=== PATIENT | female | born 2000 | race Caucasian/White ===

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

== ENCOUNTER 2020-11-04 05:32 | Emergency (ER) | payer MEDICAID ==
[2020-11-04] MEDS ORDERED: Hydromorphone 1 mg/ml Injection IV ONE (06:06)
[2020-11-04] MEDS ORDERED: Zofran 4 MG/2 ML VIAL IV ONE ×2 (06:06→08:11)
[2020-11-04] MEDS ORDERED: PROTONIX 40 MG IV IV ONE ×2 (06:06→06:23)
[2020-11-04] MEDS ORDERED: Sodium Chloride 0.9% 1000 ML 1,000 ML IV STA (06:06)
--- NOTE | 2020-11-04 06:07 | ERPHSYRPT ---
- History of Present Illness Historian: patient, family Exam Limitations: no limitations Patient Subjective Stated Complaint: My belly hurt yesterday around noon but got better, but I started vomiting at 0100 and can't quit. Triage Nursing Assessment: Pt c/o RUQ pain, which radiates to mid back. Abd soft with active bs x4 quad, tender on palpation, no rebound tenderness. Pt c/o belly ache yesterday around noon but it went away. She was able to eat dinner and felt better. At approx 0100, pt started vomiting and having severe abd pain. Pt has had diarrhea a few times as well. Timing/Duration: yesterday Activities at Onset: none Quality: sharpness, stabbing Abdominal Pain Onset Location: RUQ, flank (Right) Pain Radiation: RUQ, flank (Right) Severity of Pain-Max: moderate Severity of Pain-Current: moderate Modifying Factors: Improves With: vomiting Associated Symptoms: diarrhea, loss of appetite, nausea, vomiting, No chest pain, No shortness of breath Previous symptoms: no prior history Hx Tetanus, Diphtheria Vaccination/Date Given: Yes Hx Influenza Vaccination/Date Given: No Hx Pneumococcal Vaccination/Date Given: No Immunizations Up to Date: Yes <LILI DONALDSON - Last Filed: 11/04/20 06:51> <MELISA FERNANDEZ - Last Filed: 11/04/20 09:50> - History of Present Illness Time Seen by Provider: 11/04/20 06:06 Physician History: This is a 20-year-old white female who has had abdominal pain that is local in the right upper quadrant that began noon on 11/03/2020. Patient was able to eat yesterday evening. However, approximately 1 AM this morning, the patient states her pain became more severe and she has had multiple episodes of vomiting. Patient denies fever, she denies chills, she denies chest pain, she denies shortness of breath. She has had some diarrhea as well. Patient has not had any abdominal surgeries in the past. Patient has no known drug allergies and she is not on any medications at this time. 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 - Vaccination Dates Date of 2cond Vaccination (if applicable): September, <LILI DONALDSON - Last Filed: 11/04/20 06:51> - Review of Systems Constitutional: No Symptoms Eyes: No Symptoms Ears, Nose, & Throat: No Symptoms Respiratory: No Symptoms Cardiac: No Symptoms Abdominal/Gastrointestinal: Abdominal Pain, Nausea, Vomiting, Diarrhea, Appetite Changes Genitourinary Symptoms: No Symptoms Musculoskeletal: No Symptoms Skin: No Symptoms Neurological: No Symptoms Psychological: No Symptoms Endocrine: No Symptoms Hematologic/Lymphatic: No Symptoms Immunological/Allergic: No Symptoms All Other Systems: Reviewed and Negative <LILI DONALDSON - Last Filed: 11/04/20 06:51> - Past Medical History Pertinent Past Medical History: Yes Neurological History: No Pertinent History ENT History: No Pertinent History Cardiac History: No Pertinent History Respiratory History: No Pertinent History Endocrine Medical History: No Pertinent History Musculoskeletal History: No Pertinent History GI Medical History: No Pertinent History History: No Pertinent History Psycho-Social History: No Pertinent History Female Reproductive Disorders: No Pertinent History - Past Surgical History Past Surgical History: No - Social History Smoking Status: Never smoker Exposure to second hand smoke: No Drug Use: marijuana Patient Lives Alone: No - Female History Hx Last Menstrual Period: 2 weeks ago Hx Now: No <LILI DONALDSON - Last Filed: 11/04/20 06:51> - Physical Exam General Appearance: mild distress (To moderate), alert, anxiety Eye Exam: PERRL/EOMI, eyes nml inspection Ears, Nose, Throat Exam: normal ENT inspection, moist mucous membranes Neck Exam: normal inspection, non-tender, supple, full range of motion Respiratory Exam: normal breath sounds, lungs clear, airway intact, No chest tenderness, No respiratory distress Cardiovascular Exam: regular rate/rhythm, normal heart sounds, normal peripheral pulses Gastrointestinal/Abdomen Exam: soft, normal bowel sounds, tenderness (ruq), guarding, No rebound Pelvic Exam: not done Rectal Exam: not done Back Exam: normal inspection, normal range of motion, No CVA tenderness Extremity Exam: normal inspection, normal range of motion, pelvis stable Neurologic Exam: alert, oriented x 3, cooperative, business education instructor II-XII nml as tested, normal mood/affect, nml cerebellar function, nml station & gait, sensation nml Skin Exam: normal color, warm, dry Lymphatic Exam: No adenopathy SpO2 Interpretation: normal SpO2: 100 O2 Delivery: Room Air <LILI DONALDSON - Last Filed: 11/04/20 06:51> - Nursing Vital Signs Nursing Vital Signs: Initial Vital Signs Temperature 98.0 F 11/04/20 05:41 Pulse Rate 74 11/04/20 05:41 Respiratory Rate 16 11/04/20 05:41 Blood Pressure 138/75 11/04/20 05:41 O2 Sat by Pulse Oximetry 100 11/04/20 05:41 Pain Scale Pain Intensity 6 - Course Nursing assessment & vital signs reviewed: Yes <LILI DONALDSON - Last Filed: 11/04/20 06:51> - CT Exams Abdomen/Pelvis CT Interpretation: Discussed w/radiologist (CT ab-pelvis wo contrast neg) <MELISA FERNANDEZ - Last Filed: 11/04/20 09:50> Ordered Tests: Active Orders 24 hr Category Date Time Status IV Insertion STAT Care 11/04/20 06:06 Active ABDOMEN AND PELVIS W/0 CONTRAS [CT] Stat Exams 11/04/20 06:07 Completed AMYLASE Stat Lab 11/04/20 06:00 Completed CBC W DIFF Stat Lab 11/04/20 06:00 Completed CMP Stat Lab 11/04/20 06:00 Completed CULTURE,URINE Stat Lab 11/04/20 09:07 Received HCG QUALITATIVE,SERUM Stat Lab 11/04/20 07:26 Completed HCG,QUALITATIVE URINE Stat Lab 11/04/20 09:07 Completed LIPASE Stat Lab 11/04/20 06:00 Completed Lactic Acid Stat Lab 11/04/20 06:06 Completed UA W/RFX UR CULTURE Stat Lab 11/04/20 09:07 Completed Urine Triage Profile Stat Lab 11/04/20 09:43 Ordered Medication Summary Discontinued Medications Generic Name Dose Route Start Last Admin Trade Name Freq PRN Reason Stop Dose Admin Hydromorphone HCl 1 mg 11/04/20 06:06 11/04/20 06:29 Hydromorphone 1 Mg/Ml Injection IV 11/04/20 06:07 1 mg STAT ONE Administration Hydromorphone HCl Confirm 11/04/20 06:23 Hydromorphone 1 Mg/Ml Injection Administered 11/04/20 06:24 Dose 1 mg .ROUTE .STK-MED ONE Sodium Chloride 1,000 mls @ 999 mls/hr 11/04/20 06:06 11/04/20 07:47 Sodium Chloride 0.9% 1000 Ml IV 11/04/20 07:06 Infused .Q1H1M STA Infusion Sodium Chloride Confirm 11/04/20 06:23 Sodium Chloride 0.9% 1000 Ml Administered 11/04/20 06:24 Dose 1,000 mls @ ud .ROUTE .STK-MED ONE Ondansetron HCl 4 mg 11/04/20 06:06 11/04/20 06:29 Zofran 4 Mg/2 Ml Vial IV 11/04/20 06:07 4 mg STAT ONE Administration Ondansetron HCl Confirm 11/04/20 06:23 Zofran 4 Mg/2 Ml Vial Administered 11/04/20 06:24 Dose 4 mg .ROUTE .STK-MED ONE Ondansetron HCl 4 mg 11/04/20 08:11 11/04/20 08:16 Zofran 4 Mg/2 Ml Vial IV 11/04/20 08:12 4 mg STAT ONE Administration Ondansetron HCl Confirm 11/04/20 08:14 Zofran 4 Mg/2 Ml Vial Administered 11/04/20 08:15 Dose 4 mg .ROUTE .STK-MED ONE Pantoprazole Sodium 40 mg 11/04/20 06:06 11/04/20 06:30 Protonix 40 Mg Iv IV 11/04/20 06:07 40 mg STAT ONE Administration Pantoprazole Sodium Confirm 11/04/20 06:23 Protonix 40 Mg Iv Administered 11/04/20 06:24 Dose 40 mg IV .STK-MED ONE Lab/Rad Data: Laboratory Result Diagrams 11/04/20 06:00 11/04/20 06:00 Laboratory Results 11/04/20 11/04/20 11/04/20 Range/Units 09:07 09:07 07:26 WBC (4.0-10.5) K/mm3 RBC (4.1-5.4) M/mm3 Hgb (12.0-16.0) gm/dl Hct (35-47) % MCV (78-100) fl MCH (26-32) pg MCHC (32-36) g/dl RDW (11.5-14.0) % Plt Count (150-450) K/mm3 MPV (7.5-11.0) fl Gran % (36.0-66.0) % Eos # (Auto) (0-0.5) Absolute Lymphs (auto) (1.0-4.6) Absolute Monos (auto) (0.0-1.3) Lymphocytes % (24.0-44.0) % Monocytes % (0.0-12.0) % Eosinophils % (0.00-5.0) % Basophils % (0.0-0.4) % Absolute Granulocytes (1.4-6.9) Basophils # (0-0.4) Sodium (137-145) mmol/L Potassium (3.5-5.1) mmol/L Chloride (98-107) mmol/L Carbon Dioxide (22-30) mmol/L Anion Gap (5-15) MEQ/L BUN (7-17) mg/dL Creatinine (0.52-1.04) mg/dL Estimated GFR ML/MIN Glucose (74-106) mg/dL Lactic Acid (0.4-2.0) Calcium (8.4-10.2) mg/dL Total Bilirubin (0.2-1.3) mg/dL AST (14-36) U/L ALT (0-35) U/L Alkaline Phosphatase (38-126) U/L Serum Total Protein (6.3-8.2) g/dL Albumin (3.5-5.0) g/dL Amylase (30-110) U/L Lipase (23-300) U/L Serum , Qual NEGATIVE (Negative) Urine Color YELLOW (YELLOW) Urine Appearance SLIGHTLY CLOUDY (CLEAR) Urine pH 6.0 (5-6) Ur Specific [place] 1.025 (1.005-1.025) Urine Protein 30 (Negative) Urine Ketones MODERATE (NEGATIVE) Urine Blood NEGATIVE (0-5) Jeffery/ul Urine Nitrite NEGATIVE (NEGATIVE) Urine Bilirubin NEGATIVE (NEGATIVE) Urine Urobilinogen NEGATIVE (0-1) mg/dL Ur Leukocyte Esterase SMALL (NEGATIVE) Urine WBC (Auto) 26-50 (0-5) /HPF Urine RBC (Auto) 0-2 (0-2) /HPF U Epithel Cells (Auto) RARE (FEW) /HPF Urine Bacteria (Auto) RARE (NEGATIVE) /HPF Urine Mucus (Auto) SLIGHT (NEGATIVE) /HPF Urine Culture Reflexed YES (NO) Urine Glucose NEGATIVE (NEGATIVE) mg/dL Urine HCG, Qual NEGATIVE (Negative) 11/04/20 11/04/20 11/04/20 Range/Units 06:06 06:00 06:00 WBC 8.3 (4.0-10.5) K/mm3 RBC 4.38 (4.1-5.4) M/mm3 Hgb 13.7 (12.0-16.0) gm/dl Hct 41.3 (35-47) % MCV 94.3 (78-100) fl MCH 31.3 (26-32) pg MCHC 33.2 (32-36) g/dl RDW 12.6 (11.5-14.0) % Plt Count 168 (150-450) K/mm3 MPV 11.4 H (7.5-11.0) fl Gran % 81.6 H (36.0-66.0) % Eos # (Auto) 0.01 (0-0.5) Absolute Lymphs (auto) 1.07 (1.0-4.6) Absolute Monos (auto) 0.43 (0.0-1.3) Lymphocytes % 12.9 L (24.0-44.0) % Monocytes % 5.2 (0.0-12.0) % Eosinophils % 0.1 (0.00-5.0) % Basophils % 0.2 (0.0-0.4) % Absolute Granulocytes 6.76 (1.4-6.9) Basophils # 0.02 (0-0.4) Sodium 139 (137-145) mmol/L Potassium 3.8 (3.5-5.1) mmol/L Chloride 106 (98-107) mmol/L Carbon Dioxide 21 L (22-30) mmol/L Anion Gap 15.9 H (5-15) MEQ/L BUN 17 (7-17) mg/dL Creatinine 0.80 (0.52-1.04) mg/dL Estimated GFR > 60.0 ML/MIN Glucose 144 H (74-106) mg/dL Lactic Acid 1.7 (0.4-2.0) Calcium 9.7 (8.4-10.2) mg/dL Total Bilirubin 0.60 (0.2-1.3) mg/dL AST 23 (14-36) U/L ALT 14 (0-35) U/L Alkaline Phosphatase 66 (38-126) U/L Serum Total Protein 7.5 (6.3-8.2) g/dL Albumin 4.6 (3.5-5.0) g/dL Amylase 71 (30-110) U/L Lipase 91 (23-300) U/L Serum , Qual (Negative) Urine Color (YELLOW) Urine Appearance (CLEAR) Urine pH (5-6) Ur Specific [place] (1.005-1.025) Urine Protein (Negative) Urine Ketones (NEGATIVE) Urine Blood (0-5) Jeffery/ul Urine Nitrite (NEGATIVE) Urine Bilirubin (NEGATIVE) Urine Urobilinogen (0-1) mg/dL Ur Leukocyte Esterase (NEGATIVE) Urine WBC (Auto) (0-5) /HPF Urine RBC (Auto) (0-2) /HPF U Epithel Cells (Auto) (FEW) /HPF Urine Bacteria (Auto) (NEGATIVE) /HPF Urine Mucus (Auto) (NEGATIVE) /HPF Urine Culture Reflexed (NO) Urine Glucose (NEGATIVE) mg/dL Urine HCG, Qual (Negative) - Progress Progress: improved, pain not gone completely Counseled pt/family regarding: lab results, diagnosis, need for follow-up <LILI DONALDSON - Last Filed: 11/04/20 06:51> <MELISA FERNANDEZ - Last Filed: 11/04/20 09:50> - Progress Progress Note: 11/04/20 07:05 I transferred care to Dr. Yi at shift change. he will follow up with tests and make final disposition (LILI DONALDSON) 11/04/20 07:46 20 yo wf w epigastric pain since 13:00 11/03/20. Pain sharp w radiation to back. It is 0 at this time after IV Dilaudid but was up to a 10. She has had N/V/D wo melena/hematochezia/dysuria/hematuria/fever. Preg is neg. 11/04/20 09:45 Pt painfree throughout stay. (MELISA FERNANDEZ) - Departure Departure Disposition: Home Critical Care Time: No <LILI DONALDSON - Last Filed: 11/04/20 06:51> <MELISA FERNANDEZ - Last Filed: 11/04/20 09:50> - Departure Clinical Impression: Right upper quadrant abdominal pain, UTI (urinary tract infection) Condition: Stable Referrals: INEZ HERNANDEZ [Primary Care Provider] - Instructions: Acute Abdomen (Belly Pain), Adult (DC), Urinary Tract Infection, Adult (DC) Additional Instructions: Return to ER for increasing pain or temperature greater than 100.5 Zofran for nausea/vomiting Start Macrobid twice a day for 5 days Prescriptions: Ondansetron ODT 4 MG [Zofran Odt 4 mg] 4 mg PO Q6H PRN PRN #10 tab PRN Reason: Nausea/Vomiting Nitrofurantoin Monohyd/M-Cryst [Macrobid 100 mg Capsule] 100 mg PO BID 5 Days #10 tab
[2020-11-04] MEDS ORDERED: Hydromorphone 1 mg/ml Injection ONE (06:23)
[2020-11-04] MEDS ORDERED: Zofran 4 MG/2 ML VIAL ONE ×2 (06:23→08:14)
[2020-11-04] MEDS ORDERED: Sodium Chloride 0.9% 1000 ML 1,000 ML ONE (06:23)
[2020-11-04 06:24] LABS: Absolute Neutrophil Ct (ANC) 6.76 (1.4-6.9); BASOPHIL % 0.2 % (0.0-0.4); Basophil (Absolute #) 0.02 (0-0.4); Eosinophil % 0.1 % (0.00-5.0); Eosinophil (Absolute #) 0.01 (0-0.5); Hematocrit 41.3 % (35-47); Hemoglobin 13.7 gm/dl (12.0-16.0); Lymphocyte (Absolute #) 1.07 (1.0-4.6); Lymphocytes % 12.9 % (24.0-44.0); Mean Cell Volume 94.3 fl (78-100); Mean Corpuscular Hemoglobin 31.3 pg (26-32); Mean Corpuscular Hgb Concent. 33.2 g/dl (32-36); Mean Platelet Volume 11.4 fl (7.5-11.0); Monocyte (Absolute #) 0.43 (0.0-1.3); Monocytes % 5.2 % (0.0-12.0); Neutrophil % 81.6 % (36.0-66.0); Platelet Count 168 K/mm3 (150-450); Red Blood Count 4.38 M/mm3 (4.1-5.4); Red Cell Distribution Width 12.6 % (11.5-14.0); White Blood Count 8.3 K/mm3 (4.0-10.5)
[2020-11-04 06:35] LABS: ALBUMIN 4.6 g/dL (3.5-5.0); ALKALINE PHOSPHATASE 66 U/L (38-126); AMYLASE 71 U/L (30-110); ANION GAP 15.9 MEQ/L (5-15); BLOOD UREA NITROGEN 17 mg/dL (7-17); CHLORIDE 106 mmol/L (98-107); Calcium 9.7 mg/dL (8.4-10.2); Carbon Dioxide 21 mmol/L (22-30); EST GLOMERULAR FILTRATION RATE > 60.0 ML/MIN; Glucose 144 mg/dL (74-106); LIPASE 91 U/L (23-300); Potassium 3.8 mmol/L (3.5-5.1); SGOT/AST 23 U/L (14-36); SGPT/ALT 14 U/L (0-35); SODIUM 139 mmol/L (137-145); Total Protein 7.5 g/dL (6.3-8.2)
--- NOTE | 2020-11-04 08:45 | XRAY ---
Indication: Abdomen pain, vomiting, nausea, vomiting, diarrhea. Multiple contiguous axial images obtained through the abdomen and pelvis without contrast. Comparison: None Lung bases are clear. Heart not enlarged. Noncontrasted stomach and bowel loops are nonobstructed. Normal appendix. Uterus retroverted with IUD in situ. No free fluid/air. Remaining liver, gallbladder, pancreas, spleen, adrenal glands, kidneys, ureters, bladder, uterus, and aorta are unremarkable for noncontrast exam. Osseous structures intact. No ventral or inguinal hernias. Impression: Negative CT abdomen/pelvis without contrast exam.
[2020-11-04 09:12] LABS: Appearance SLIGHTLY CLOUDY (CLEAR); Bacteria RARE /HPF (NEGATIVE); Bilirubin NEGATIVE (NEGATIVE); Blood NEGATIVE Ery/ul (0-5); Epithelial Cells RARE /HPF (FEW); Glucose NEGATIVE (NEGATIVE); Ketones MODERATE (NEGATIVE); Leukocyte Esterase SMALL (NEGATIVE); Mucus SLIGHT /HPF (NEGATIVE); Nitrite NEGATIVE (NEGATIVE); Protein,Urine Dip 30 (Negative); RBC 0-2 /HPF (0-2); Specific Gravity 1.025 (1.005-1.025); Urobilinogen NEGATIVE mg/dL (0-1); WBC 26-50 /HPF (0-5)
[2020-11-04 10:05] VITALS: BP 110/82; PULSE 46; O2SAT 98
[2020-11-04 10:15] LABS: Amphetamine,Urine NEGATIVE (NEGATIVE); Barbiturate,Urine NEGATIVE (NEGATIVE); Benzodiazepine,Urine NEGATIVE (NEGATIVE); Cocaine,Urine NEGATIVE (NEGATIVE); Methadone,Urine NEGATIVE (NEGATIVE); Opiate,Urine POSITIVE (NEGATIVE); PCP,Urine NEGATIVE (NEGATIVE); THC,Urine POSITIVE (NEGATIVE)
== END 2020-11-04 10:10 | disposition home or self-care (01) ==
LOC: ED 05:32
DX: R10.11 Right upper quadrant pain (principal); N39.0 Urinary tract infection, site not specified; R19.7 Diarrhea, unspecified; R63.0 Anorexia; R11.2 Nausea with vomiting, unspecified
CPT/HCPCS: 36000; 36415; 74176; 80053; 80307; 81001; 81025; 82150; 83605; 83690; 84703; 85025; 87077; 87086; 87186; 96360; 96374; 96375; 96376; 99284; J1170; J2405